=== PATIENT | male | born 1955 | race Caucasian/White ===

== ENCOUNTER → 2016-10-12 | Outpatient (CLI) | payer MEDICAID | LOC: OD 08:10 | PROVIDERS: ATTEND Internal Medicine | DX: Z94.1 Heart transplant status (principal); Z48.298 Encounter for aftercare following other organ transplant | CPT/HCPCS: 71020 ==

== ENCOUNTER → 2016-11-28 | Outpatient (CLI) | payer MEDICAID ==
[2016-11-28 15:02] LABS: HEMATOCRIT 33.3 % (37.9-51.0); HEMOGLOBIN 10.8 g/dL (13.5-17.0); HGB HCT DIFFERENCE -0.9; MEAN CORPUSCULAR HEMOGLOBIN 31.4 pg (27.0-33.4); MEAN CORPUSCULAR HGB CONC 32.5 g/dL (32.0-36.0); MEAN CORPUSCULAR VOLUME 97 fl (80-97); RED BLOOD COUNT 3.45 10^6/uL (4.35-5.55); RED CELL DISTRIBUTION WIDTH 16.5 % (11.5-14.0)
[2016-11-30 12:14] LABS: ANION GAP 13 (5-19); BLOOD UREA NITROGEN 34 mg/dL (7-20); CALCIUM 8.9 mg/dL (8.4-10.2); CARBON DIOXIDE 25 mmol/L (22-30); CHLORIDE 103 mmol/L (98-107); GLUCOSE 196 mg/dL (75-110); POTASSIUM 4.2 mmol/L (3.6-5.0); SODIUM 140.8 mmol/L (137-145)
== END ==
LOC: OD 14:36
PROVIDERS: ATTEND Nurse Practitioner Family
DX: Z48.298 Encounter for aftercare following other organ transplant (principal); Z94.1 Heart transplant status; Z79.899 Other long term (current) drug therapy
CPT/HCPCS: 36415; 80048; 80197; 85027

== ENCOUNTER → 2016-12-25 | Outpatient (CLI) | payer MEDICAID ==
[2016-12-29 07:43] LABS: CMV DNA PCR QUANT Negative (Negative)
== END ==
LOC: OD 10:31
PROVIDERS: ATTEND Nurse Practitioner Family
DX: Z94.1 Heart transplant status (principal); Z79.899 Other long term (current) drug therapy
CPT/HCPCS: 36415; 87496

== ENCOUNTER → 2016-12-31 | Outpatient (CLI) | payer MEDICAID ==
[2017-01-02 18:05] LABS: CMV DNA PCR QUANT Negative (Negative)
== END ==
LOC: OD 11:09
PROVIDERS: ATTEND Nurse Practitioner Family
DX: Z94.1 Heart transplant status (principal); Z79.899 Other long term (current) drug therapy
CPT/HCPCS: 36415; 87496

== ENCOUNTER → 2017-01-14 | Outpatient (CLI) | payer MEDICAID | LOC: OD 12:42 | PROVIDERS: ATTEND Nurse Practitioner Family | DX: Z94.1 Heart transplant status (principal); Z79.899 Other long term (current) drug therapy | CPT/HCPCS: 36415; 87496 ==

== ENCOUNTER → 2017-01-30 | Outpatient (CLI) | payer MEDICAID ==
[2017-02-05 07:24] LABS: CMV DNA PCR QUANT Negative (Negative)
== END ==
LOC: OD 14:06
PROVIDERS: ATTEND Nurse Practitioner Family
DX: Z94.1 Heart transplant status (principal); Z79.899 Other long term (current) drug therapy
CPT/HCPCS: 36415; 87496

== ENCOUNTER → 2017-02-11 | Outpatient (CLI) | payer MEDICAID | LOC: OD 11:50 | PROVIDERS: ATTEND Nurse Practitioner Family | DX: Z94.1 Heart transplant status (principal); Z79.899 Other long term (current) drug therapy | CPT/HCPCS: 36415; 87496 ==

== ENCOUNTER → 2017-02-20 | Outpatient (CLI) | payer MEDICAID ==
[2017-02-20 11:05] LABS: HEMATOCRIT 22.7 % (37.9-51.0); HGB HCT DIFFERENCE 0.4; MEAN CORPUSCULAR HEMOGLOBIN 32.3 pg (27.0-33.4); MEAN CORPUSCULAR HGB CONC 34.1 g/dL (32.0-36.0); MEAN CORPUSCULAR VOLUME 95 fl (80-97); RED CELL DISTRIBUTION WIDTH 16.7 % (11.5-14.0); WHITE BLOOD COUNT 13.2 10^3/uL (4.0-10.5)
[2017-02-20 12:48] LABS: HEMOGLOBIN 7.7 g/dL (13.5-17.0)
== END ==
LOC: OD 09:43
PROVIDERS: ATTEND Internal Medicine Cardiovascular Disease
DX: Z94.1 Heart transplant status (principal)
CPT/HCPCS: 36415; 85027

== ENCOUNTER 2018-11-27 16:31 | Emergency (ER) | payer MEDICARE, MEDICAID ==
[2018-11-27 16:43] VITALS: BP 124/74
--- NOTE | 2018-11-27 18:35 | ER Document Report ---
ED General - General Chief Complaint: Arm Problem Stated Complaint: ARM SWELLING Time Seen by Provider: 11/27/18 18:19 Primary Care Provider: CARLOS HANSON MD [Primary Care Provider] - Follow up as needed TRAVEL OUTSIDE OF THE U.S. IN LAST 30 DAYS: No - HPI Notes: Patient is a 63-year-old gentleman sent in from [facility]. He can offer me almost no meaningful history, is very difficult historian. From my understanding, he had dialysis today. This is done from his right subclavian port. He had an attempted fistula in his left upper extremity, has had swelling and redness since then. He cannot tell me when that was. It became warmer today per staff, so he was sent here. After dialysis, patient was noted to be 81% on room air. He was placed on 2 L and his oxygen improved. The patient denies any difficulty breathing. He really will not tell me anything else. During the course of my exam, the patient became extremely agitated when I palpated his abdomen, and refused to allow any further examination. I was told by the patient's nurse that she spoke to his son, who saw the arm, and states it looks no different. He also notes that this patient's behavior and mental status are at his baseline. Past Medical History - General Information source: Patient, Outside Facility Records - Social History Smoking Status: Unknown if Ever Smoked Drug Abuse: None Lives with: [facility] Family History: CAD - Past Medical History Cardiac Medical History: Reports: Hx Atrial Fibrillation, Hx Congestive Heart Failure, Hx Hypercholesterolemia, Hx Hypertension, Other - Status post heart transplant Pulmonary Medical History: Reports: Hx Sleep Apnea Endocrine Medical History: Reports: Hx Diabetes Mellitus Type 2 Renal/ Medical History: Reports: Hx End Stage Renal Disease Psychiatric Medical History: Reports: Hx Dementia Review of Systems - Review of Systems -: Yes ROS unobtainable due to patient's medical condition - Patient refusing to cooperate at this time Physical Exam - Vital signs Vitals: Temp Pulse BP Pulse Ox 98.2 F 77 124/74 94 11/27/18 16:41 11/27/18 16:41 11/27/18 16:41 11/27/18 16:41 - Notes Notes: This is a 63-year-old male who appears older than his stated age in no acute distress. Head is normocephalic and atraumatic. Pupils are equal round, reactive to light. Oral mucosa is moist. He has a central line in his right upper chest, he is for dialysis earlier today. No surrounding erythema. Heart is regular, lungs show diminished breath sounds but no wheezes, rales, rhonchi appreciated. Abdomen is tender in the epigastric region. Remainder of abdominal exam is limited. Examination of the left upper extremity is 3+ pitting edema to the shoulder. He has a healing but purulent Cole draining 8 cm long lesion this up her left arm, consistent with prior fistula placement. He is neurovascularly intact distally. Radial pulse easily palpable. He is missing his thumb and index finger on this hand. Sensation appears to be intact. Course - Re-evaluation Re-evalutation: 11/27/18 21:02 Patient presents emergency department for evaluation. There is some confusion as to what this patient's presenting symptoms actually are. He was noted to be mildly hypoxic per custodial staff earlier today, but they did not send him for evaluation of that. There was concern about his left arm being more warm, but it has been chronically red and swollen for the last several months since failed AV fistula placement. Laboratory investigations and imaging were obtained. Labs failed to reveal any leukocytosis. This patient is already on nightly oxygen. He is not in any respiratory distress. His Doppler failed to reveal any clear DVT, but it was limited by the fact that no proximal imaging could be performed. At this time patient is very anxious to be discharged back to the custodial. His chest x-ray revealed edema versus pneumonia. He is not in any respiratory distress. He is breathing without difficulty. I will go ahead and opt to treat him with oral antibiotics. The patient is amenable to this plan. He is given his first dose of Levaquin here, will write him a prescription for 500 mg of Levaquin every other day. He is to return to the ED with worsening or new concerning symptoms of any sort. - Vital Signs Vital signs: Temp Pulse Resp BP Pulse Ox 98.2 F 77 124/74 94 11/27/18 16:41 11/27/18 16:41 11/27/18 16:41 11/27/18 16:41 - Laboratory Result Diagrams: 11/27/18 18:56 11/27/18 18:56 Laboratory results interpreted by me: 11/27/18 11/27/18 18:56 18:56 RBC 3.03 L Hgb 10.1 L Hct 31.4 L MCV 104 H RDW 19.9 H Plt Count 92 L Carbon Dioxide 31 H BUN 36 H Creatinine 4.76 H Est GFR ( Amer) 15 L Est GFR (Non-Af Amer) 12 L Glucose 121 H Direct Bilirubin 0.6 H ALT 12 L Lipase 14.3 L - Diagnostic Test Radiology reviewed: Reports reviewed Radiology results interpreted by me: 11/27/18 21:02 Chest X-Ray 11/27/18 18:29 IMPRESSION: Findings suggest CHF exacerbation; infectious etiology is not excluded. Discharge - Discharge Clinical Impression: Hypoxia, Left arm swelling Pneumonia Qualifiers: Pneumonia type: due to unspecified organism Laterality: right Lung location: unspecified part of lung Qualified Code(s): J18.9 - Pneumonia, unspecified organism Condition: Stable Disposition: HOME-SNF (ED ONLY) Instructions: Pneumonia ([facility]) Additional Instructions: Take all of the antibiotic as prescribed until gone. Follow-up with your doctor next week. Return to the ED with worsening or new concerning symptoms of any sort. Referrals: CARLOS HANSON MD [Primary Care Provider] - Follow up as needed
--- NOTE | 2018-11-27 19:00 | RADIOLOGY REPORT (SQ) ---
EXAM DESCRIPTION: CHEST 2 VIEWS COMPLETED DATE/TIME: 11/27/2018 6:41 pm REASON FOR STUDY: hypoxia COMPARISON: 12/15/2006 EXAM PARAMETERS: NUMBER OF VIEWS: two views TECHNIQUE: Digital Frontal and Lateral radiographic views of the chest acquired. RADIATION DOSE: NA LIMITATIONS: Patient rotation. FINDINGS: LUNGS AND PLEURA: Patient rotation limits the ability to localize diffuse patchy opacifica tion which appear to be predominantly left-sided on this examination. A left-sided pleural effusion may be present. No pneumothorax. MEDIASTINUM AND HILAR STRUCTURES: No masses or contour abnormalities. HEART AND VASCULAR STRUCTURES: Cardiomegaly with central vascular prominence and indistinctness. BONES: No acute findings. HARDWARE: Dual-lumen catheter terminates in the region of the right atrium. Midline surgical changes . OTHER: No other significant finding. IMPRESSION: Findings suggest CHF exacerbation; infectious etiology is not excluded. TECHNICAL DOCUMENTATION: JOB ID: [id number] [employer]- All Rights Reserved Reading location - IP/workstation name: [email or web address]
[2018-11-27 19:28] LABS: ABSOLUTE LYMPHOCYTES (AUTO) 0.9 10^3/uL (0.5-4.7); ABSOLUTE MONOCYTES (AUTO) 0.4 10^3/uL (0.1-1.4); ABSOLUTE NEUT (AUTO) 3.1 10^3/uL (1.7-8.2); BASOPHILS % (AUTO) 0.5 % (0-2); HEMATOCRIT 31.4 % (37.9-51.0); HEMOGLOBIN 10.1 g/dL (13.5-17.0); LYMPHOCYTES % (AUTO) 20.6 % (13-45); MEAN CORPUSCULAR HEMOGLOBIN 33.4 pg (27.0-33.4); MEAN CORPUSCULAR HGB CONC 32.2 g/dL (32.0-36.0); MEAN CORPUSCULAR VOLUME 104 fl (80-97); MONOCYTES % (AUTO) 9.9 % (3-13); RED BLOOD COUNT 3.03 10^6/uL (4.35-5.55); RED CELL DISTRIBUTION WIDTH 19.9 % (11.5-14.0); TOTAL CELLS COUNTED % (AUTO) 100 %; WHITE BLOOD COUNT 4.5 10^3/uL (4.0-10.5)
[2018-11-27 19:39] LABS: INTERNATIONAL RATION (INR) 1.05; PARTIAL THROMBOPLASTIN TIME 29.3 SEC (23.5-35.8); PROTHROMBIN TIME 13.7 SEC (11.4-15.4)
[2018-11-27 19:48] LABS: ALANINE AMINOTRANSFERASE 12 U/L (21-72); ALBUMIN 3.7 g/dL (3.5-5.0); ALKALINE PHOSPHATASE 76 U/L (38-126); ANION GAP 9 (5-19); ASPARTATE AMINO TRANSFERASE 24 U/L (17-59); BILIRUBIN,DIRECT 0.6 mg/dL (0.0-0.4); BILIRUBIN,TOTAL 0.6 mg/dL (0.2-1.3); BLOOD UREA NITROGEN 36 mg/dL (7-20); CALCIUM 8.4 mg/dL (8.4-10.2); CARBON DIOXIDE 31 mmol/L (22-30); CHLORIDE 101 mmol/L (98-107); GLUCOSE 121 mg/dL (75-110); LIPASE 14.3 U/L (23-300); POTASSIUM 4.7 mmol/L (3.6-5.0); SODIUM 140.5 mmol/L (137-145); TOTAL PROTEIN 7.5 g/dL (6.3-8.2)
[2018-11-27 19:49] LABS: PLATELET COUNT 92 10^3/uL (150-450)
[2018-11-27] MEDS ORDERED: LEVOFLOXACIN 750 MG TABLET PO ONE (20:54)
--- NOTE | 2018-11-28 00:40 | RADIOLOGY REPORT (SQ) ---
EXAM DESCRIPTION: US EXTREMITY VEINS UNILATERAL COMPLETED DATE/TME: 11/27/2018 18:25 CLINICAL HISTORY: r/o DVT, edema COMPARISON: None Available TECHNIQUE: Duplex images of the jugular, subclavian, cephalic, radial and ulnar veins of the left upper extremity were submitted. FINDINGS: All of the above-mentioned venous structures demonstrate normal flow without thrombus. Images of the axillary and brachial vein were not obtained due to superimposed bandage. There is subcutaneous edema. IMPRESSION: No sonographic evidence of acute DVT within the left upper extremity. Subcutaneous edema. Images of the axillary and brachial vein were not obtained due to superimposed bandage.
== END 2018-11-27 22:00 ==
LOC: ER 16:31
DX: M79.89 Other specified soft tissue disorders (principal); J18.9 Pneumonia, unspecified organism; R09.02 Hypoxemia; E11.22 Type 2 diabetes mellitus with diabetic chronic kidney disease; I12.0 Hypertensive chronic kidney disease with stage 5 chronic kidney disease or end stage renal disease; N18.6 End stage renal disease; Z99.2 Dependence on renal dialysis; Z94.1 Heart transplant status; Z99.81 Dependence on supplemental oxygen
CPT/HCPCS: 99284; 36415; 87040; 83690; 85025; 85610; 85730; 80053; 93971; 71046; A9270

== ENCOUNTER 2019-03-10 11:03 | Emergency (ER) | payer MEDICARE, MEDICAID ==
[2019-03-10 12:56] LABS: HEMATOCRIT 31.7 % (37.9-51.0); HEMOGLOBIN 10.8 g/dL (13.5-17.0); MEAN CORPUSCULAR HEMOGLOBIN 34.8 pg (27.0-33.4); MEAN CORPUSCULAR VOLUME 102 fl (80-97); PLATELET COUNT 103 10^3/uL (150-450); RED BLOOD COUNT 3.09 10^6/uL (4.35-5.55)
[2019-03-10 13:13] LABS: ALBUMIN 3.7 g/dL (3.5-5.0); ALKALINE PHOSPHATASE 77 U/L (38-126); ANION GAP 11 (5-19); ASPARTATE AMINO TRANSFERASE 27 U/L (17-59); BILIRUBIN,DIRECT 0.6 mg/dL (0.0-0.4); BILIRUBIN,TOTAL 1.4 mg/dL (0.2-1.3); BLOOD UREA NITROGEN 50 mg/dL (7-20); CALCIUM 8.9 mg/dL (8.4-10.2); CARBON DIOXIDE 24 mmol/L (22-30); CHLORIDE 102 mmol/L (98-107); GLUCOSE 94 mg/dL (75-110); POTASSIUM 4.3 mmol/L (3.6-5.0); TOTAL PROTEIN 7.3 g/dL (6.3-8.2)
[2019-03-10 13:20] LABS: ABSOLUTE LYMPHOCYTES# (MANUAL) 1.1 10^3/uL (0.5-4.7); ABSOLUTE MONOCYTES # (MANUAL) 0.4 10^3/uL (0.1-1.4); BAND NEUTROPHILS % (MANUAL) 8 % (3-5); BASOPHILS % (MANUAL) 0 % (0-2); EOSINOPHILS % (MANUAL) 0 % (0-6); LYMPHOCYTES % (MANUAL) 19 % (13-45); METAMYELOCYTES % (MANUAL) 2 % (0); MONOCYTES % (MANUAL) 6 % (3-13); SEGMENTED NEUTROPHILS % (MAN) 65 % (42-78); TOTAL CELLS COUNTED 100
[2019-03-10 13:22] LABS: PLATELET COMMENT DECREASED
[2019-03-10 13:24] LABS: ANISOCYTOSIS 1+; POIKILOCYTOSIS SLIGHT
--- NOTE | 2019-03-10 13:42 | ER Document Report ---
ED General - General Chief Complaint: Wound Infection Stated Complaint: LEFT ARM PAIN Time Seen by Provider: 03/10/19 12:16 Primary Care Provider: CARLOS HANSON MD [Primary Care Provider] - Follow up as needed TRAVEL OUTSIDE OF THE [place] IN LAST 30 DAYS: No - HPI Notes: Patient is a 63-year-old male who presents to the emergency department for evaluation of erythema overlying his AV fistula. I cannot really tran any significant history from the patient, as he has a history of dementia. I asked him how long his arm is been swollen, he states since June. I asked him the date now, he cannot answer me. He is very agitated, states he just wants to leave. Evidently he is due for dialysis today, did not have this performed. - Related Data Allergies/Adverse Reactions: ROMEL Inhibitors Allergy (Verified 03/10/19 11:25) gabapentin Allergy (Verified 03/10/19 11:25) haloperidol [From Haldol] Allergy (Verified 03/10/19 11:25) Past Medical History - General Information [facility] - Social History Smoking Status: Never Smoker Chew tobacco use (# tins/day): No Frequency of alcohol use: None Drug Abuse: None Family History: CAD Patient has suicidal ideation: No Patient has homicidal ideation: No - Past Medical History Cardiac Medical History: Reports: Hx Atrial Fibrillation, Hx Congestive Heart Failure, Hx Hypercholesterolemia, Hx Hypertension Pulmonary Medical History: Reports: Hx COPD, Hx Sleep Apnea Endocrine Medical History: Reports: Hx Diabetes Mellitus Type 2 Renal/ Medical History: Reports: Hx End Stage Renal Disease. Denies: Hx Peritoneal Dialysis GI Medical History: Reports: Hx Ulcer Psychiatric Medical History: Reports: Hx Dementia Past Surgical History: Reports: Hx Cardiac Surgery - heart transplant Review of Systems - Review of Systems -: Yes ROS unobtainable due to patient's medical condition - dementia Physical Exam - Vital signs Vitals: Temp Pulse Resp BP Pulse Ox 98.2 F 82 18 134/77 H 95 03/10/19 11:14 03/10/19 11:14 03/10/19 11:14 03/10/19 11:14 03/10/19 11:14 - Notes Notes: Patient is a 63-year-old male who appears much older than his stated age, no acute distress. Head is normocephalic and atraumatic, pupils are equal round, reactive to light. Heart is regular, lungs show diminished breath sounds but no wheezes, rales, rhonchi. Abdomen is soft and nontender, normoactive bowel sounds. Lower extremities without cyanosis or clubbing. Examination of the left upper extremity yields a moderate amount of pitting edema from the shoulder down. AV fistula noted on the ulnar aspect of the upper arm, with moderate edema and tenderness. Overlying erythema diffuse, not well demarcated. Palpable thrill noted. He is missing his second and third digits on that hand. Course - Re-evaluation Re-evalutation: 03/10/19 15:42 Patient presents emergency department for evaluation of left arm redness and swelling. Initially had absolutely no history. Eventually, patient's daughter called, left some history with staff here. He is a heart transplant patient, has been to [place] for about 1 year. He has a fistula in his left arm, that was supposed to be redirected by physician at [place]. He missed the appointment last week for that. At this point, I do not believe the swelling is shown up overnight. His venous Doppler was unremarkable. He is not febrile. He has no leukocytosis. I will go ahead and treat him with IV clindamycin, send him home with oral clindamycin. In regards to his electrolytes, he has no significant hyperkalemia. He is not uremic. He Bharath has a port in place in his right chest, he can be dialyzed tomorrow. He needs to follow-up with [place] and primary care, return to the ED with worsening or new concerning symptoms of any sort. - Vital Signs Vital signs: Temp Pulse Resp BP Pulse Ox 98.2 F 82 18 134/77 H 95 03/10/19 11:14 03/10/19 11:14 03/10/19 11:14 03/10/19 11:14 03/10/19 11:14 - Laboratory Result Diagrams: 03/10/19 12:26 03/10/19 12:26 Laboratory results interpreted by me: 03/10/19 03/10/19 12:26 12:26 RBC 3.09 L Hgb 10.8 L Hct 31.7 L MCV 102 H MCH 34.8 H RDW 18.0 H Plt Count 103 L Band Neutrophils % 8 H Metamyelocytes % 2 H BUN 50 H Creatinine 6.13 H Est GFR ( Amer) 11 L Est GFR (MDRD) Non-Af 9 L Total Bilirubin 1.4 H Direct Bilirubin 0.6 H - Diagnostic Test Radiology reviewed: Reports reviewed Radiology results interpreted by me: 03/10/19 15:43 Venous Doppler Study 03/10/19 13:30 IMPRESSION: NO EVIDENCE DVT OR SVT LEFT ARM. Discharge - Discharge Clinical Impression: Cellulitis, Edema of left upper extremity Condition: Stable Disposition: HOME-SNF (ED ONLY) Instructions: Cellulitis ([facility]) Additional Instructions: Take all the antibiotic as prescribed until gone. Follow-up as scheduled in [place] in regards to your AV fistula. If you develop worsening or new concerning symptoms of any sort, return immediately to the emergency department for evaluation. Referrals: CARLOS HANSON MD [Primary Care Provider] - Follow up as needed
[2019-03-10] MEDS ORDERED: CLINDAMYCIN 900 MG/D5W RTU 900 MG/50 ML RTUPB IV ONE (14:24)
--- NOTE | 2019-03-10 14:59 | RADIOLOGY REPORT (SQ) ---
EXAM DESCRIPTION: VENOUS UNILATERAL UPPER COMPLETED DATE/TIME: 03/10/2019 2:50 pm REASON FOR STUDY: LUE SWELLING COMPARISON: None. TECHNIQUE: Dynamic and static andino scale and color images acquired of the left arm venous system. Se lected spectral images acquired with additional compression and augmentation maneuvers. The contralat eral subclavian vein and internal jugular vein were also imaged. Images stored on PACS. LIMITATIONS: None. FINDINGS: INTERNAL JUGULAR VEIN: Normal phasicity, compression, augmentation. No visualized echogeni c material on andino scale. No defects on color images. Comparison opposite side normal. SUBCLAVIAN VEIN: Normal compression, augmentation. No visualized echogenic material on andino scale. No defects on color images. AXILLARY VEIN: Normal compression, augmentation. No visualized echogenic material on andino scale. No d efects on color images. BRACHIAL VEIN: Normal compression, augmentation. No visualized echogenic material on andino scale. No d efects on color images. BASILIC VEIN: Normal compression, augmentation. No visualized echogenic material on andino scale. No de fects on color images. CEPHALIC VEIN: Normal compression, augmentation. No visualized echogenic material on andino scale. No d efects on color images. OTHER: No other significant finding. IMPRESSION: NO EVIDENCE DVT OR SVT LEFT ARM. TECHNICAL DOCUMENTATION: JOB ID: [id number] [employer]- All Rights Reserved Reading location - IP/workstation name: [email or web address]
[2019-03-10 16:33] VITALS: BP 125/73
== END 2019-03-10 17:21 ==
LOC: ER 11:03
DX: L03.90 Cellulitis, unspecified (principal); R60.0 Localized edema; F03.90 Unspecified dementia, unspecified severity, without behavioral disturbance, psychotic disturbance, mood disturbance, and anxiety; I12.0 Hypertensive chronic kidney disease with stage 5 chronic kidney disease or end stage renal disease; E11.22 Type 2 diabetes mellitus with diabetic chronic kidney disease; N18.6 End stage renal disease; Z99.2 Dependence on renal dialysis; Z94.1 Heart transplant status; J44.9 Chronic obstructive pulmonary disease, unspecified; Z88.8 Allergy status to other drugs, medicaments and biological substances; Z88.6 Allergy status to analgesic agent
CPT/HCPCS: 36415; 87040; 85025; 80053; 93971; J3490; 87077; 96365; 99284

== ENCOUNTER 2019-03-12 16:46 | Emergency (ER) | payer MEDICARE, MEDICAID ==
--- NOTE | 2019-03-12 17:09 | ER Document Report ---
ED General - General Chief Complaint: Arm Problem Stated Complaint: SWOLLEN LEFT ARM Time Seen by Provider: 03/12/19 17:04 Primary Care Provider: CARLOS AHNSON MD [Primary Care Provider] - Follow up as needed Cannot obtain history due to: Dementia TRAVEL OUTSIDE OF THE [place] IN LAST 30 DAYS: No - HPI Patient complains to provider of: left arm swelling Notes: Sober from prison for evaluation of left arm swelling. Patient is a very poor historian secondary to dementia. Patient is a dialysis patient. Patient was up at [facility] had a procedure performed on his left forearm for possible some cancer removal. Since then staff is noted his entire left upper extremity has swollen. Patient does have a dialysis fistula in that arm. Has a temporary subclavian access in his right subclavian. he denies all symptoms. Patient was just seen in the emergency department for similar symptoms. Had extensive work-up at that time no leukocytosis. Imaging study at that time showed no DVT but just some fluid in his tissue. Patient is scheduled to follow-up with his specialist at [facility] tomorrow. Is a dialysis patient is afebrile poor historian. Had been given clindamycin in the emergency department has still has prescriptions for clindamycin for possible coinfection of cellulitis in his left upper extremity. - Related Data Allergies/Adverse Reactions: ROMEL Inhibitors Allergy (Verified 03/10/19 11:25) gabapentin Allergy (Verified 03/10/19 11:25) haloperidol [From Haldol] Allergy (Verified 03/10/19 11:25) Past Medical History - Social History Smoking Status: Unknown if Ever Smoked Family History: CAD Patient has suicidal ideation: No Patient has homicidal ideation: No - Past Medical History Cardiac Medical History: Reports: Hx Atrial Fibrillation, Hx Congestive Heart Failure, Hx Hypercholesterolemia, Hx Hypertension Pulmonary Medical History: Reports: Hx COPD, Hx Sleep Apnea Endocrine Medical History: Reports: Hx Diabetes Mellitus Type 2 Renal/ Medical History: Reports: Hx End Stage Renal Disease. Denies: Hx Peritoneal Dialysis GI Medical History: Reports: Hx Ulcer Psychiatric Medical History: Reports: Hx Dementia Past Surgical History: Reports: Hx Cardiac Surgery - heart transplant Review of Systems - Review of Systems -: Yes ROS unobtainable due to patient's medical condition Physical Exam - Vital signs Vitals: Temp Pulse Resp BP Pulse Ox 97.9 F 68 16 121/68 97 03/12/19 16:51 03/12/19 16:51 03/12/19 16:51 03/12/19 16:51 03/12/19 16:51 - Notes Notes: PHYSICAL EXAMINATION: GENERAL: Well-appearing, well-nourished and in no acute distress. HEAD: Atraumatic, normocephalic. EYES: Pupils equal round and reactive to light, extraocular movements intact, sclera anicteric, conjunctiva are normal. ENT: nares patent, oropharynx clear without exudates. Moist mucous membranes. NECK: Normal range of motion, supple without lymphadenopathy LUNGS: Breath sounds clear to auscultation bilaterally and equal. No wheezes rales or rhonchi. HEART: Regular rate and rhythm without murmurs ABDOMEN: Soft, nontender, normoactive bowel sounds. No guarding, no rebound. No masses appreciated. EXTREMITIES: Left upper extremity profoundly swollen compared to right. Forearm wrapped and clean dry dressing, and refuses to allow us to take off the dressing on his left forearm. SKIN: Warm, Dry, normal turgor, no rashes or lesions noted. Course - Re-evaluation Re-evalutation: 03/12/19 19:13 63-year-old patient with extensive medical history including dialysis presents with continued left upper extremity swelling from his prison. She is afebrile has stable vital signs within normal limits. Patient's lab work today are actually improved from 2 days ago. He has no white count. Kidney function appears improved as he did have dialysis today. Patient's imaging study of his left upper extremity is again unremarkable. She is still on oral clindamycin he was prescribed 2 days ago. Patient is scheduled to see [facility] for this peripheral edema tomorrow. Recommend he get transport to this appointment from his prison. Patient will be discharged back to his prison improved with another unremarkable work-up. - Vital Signs Vital signs: Temp Pulse Resp BP Pulse Ox 97.9 F 68 16 121/68 97 03/12/19 16:51 03/12/19 16:51 03/12/19 16:51 03/12/19 16:51 03/12/19 16:51 - Laboratory Result Diagrams: 03/12/19 17:24 03/12/19 17:24 Laboratory results interpreted by me: 03/12/19 03/12/19 17:24 17:24 RBC 2.71 L Hgb 9.2 L Hct 27.8 L MCV 103 H MCH 34.0 H RDW 17.6 H Plt Count 101 L Band Neutrophils % 1 L Metamyelocytes % 1 H Sodium 136.6 L BUN 28 H Creatinine 3.66 H Est GFR ( Amer) 20 L Est GFR (MDRD) Non-Af 17 L Glucose 119 H Calcium 8.1 L Direct Bilirubin 0.5 H Albumin 3.4 L Discharge - Discharge Clinical Impression: Left arm swelling Condition: Stable Disposition: HOME, SELF-CARE Instructions: Edema, Peripheral ([facility]) Additional Instructions: Follow-up at [facility] within the next 2 to 3 days. Also follow-up PCP if anything changes. It is imperative you do not do not miss this appointment Referrals: CARLOS HANSON MD [Primary Care Provider] - Follow up as needed
[2019-03-12 17:46] LABS: HEMATOCRIT 27.8 % (37.9-51.0); HEMOGLOBIN 9.2 g/dL (13.5-17.0); MEAN CORPUSCULAR HGB CONC 33.2 g/dL (32.0-36.0); MEAN CORPUSCULAR VOLUME 103 fl (80-97); PLATELET COUNT 101 10^3/uL (150-450); RED BLOOD COUNT 2.71 10^6/uL (4.35-5.55); RED CELL DISTRIBUTION WIDTH 17.6 % (11.5-14.0); WHITE BLOOD COUNT 4.6 10^3/uL (4.0-10.5)
[2019-03-12 17:57] LABS: ALBUMIN 3.4 g/dL (3.5-5.0); ALKALINE PHOSPHATASE 84 U/L (38-126); ANION GAP 9 (5-19); ASPARTATE AMINO TRANSFERASE 21 U/L (17-59); BILIRUBIN,DIRECT 0.5 mg/dL (0.0-0.4); BILIRUBIN,TOTAL 0.9 mg/dL (0.2-1.3); BLOOD UREA NITROGEN 28 mg/dL (7-20); CALCIUM 8.1 mg/dL (8.4-10.2); CARBON DIOXIDE 28 mmol/L (22-30); CHLORIDE 100 mmol/L (98-107); GLUCOSE 119 mg/dL (75-110); TOTAL PROTEIN 6.8 g/dL (6.3-8.2)
[2019-03-12 18:06] LABS: ABSOLUTE LYMPHOCYTES# (MANUAL) 1.1 10^3/uL (0.5-4.7); ABSOLUTE MONOCYTES # (MANUAL) 0.3 10^3/uL (0.1-1.4); BAND NEUTROPHILS % (MANUAL) 1 % (3-5); BASOPHILS % (MANUAL) 0 % (0-2); EOSINOPHILS % (MANUAL) 1 % (0-6); LYMPHOCYTES % (MANUAL) 24 % (13-45); METAMYELOCYTES % (MANUAL) 1 % (0); MONOCYTES % (MANUAL) 6 % (3-13); SEGMENTED NEUTROPHILS % (MAN) 67 % (42-78); TOTAL CELLS COUNTED 100
[2019-03-12 18:08] LABS: ANISOCYTOSIS 1+; PLATELET COMMENT DECREASED; TOXIC GRANULATION SLIGHT
--- NOTE | 2019-03-12 19:00 | EKG REPORT ---
SEVERITY:- ABNORMAL ECG - SINUS RHYTHM PROBABLE LEFT ATRIAL ABNORMALITY RIGHT BUNDLE BRANCH BLOCK NONSPECIFIC INFERIOR ST CHANGES : Confirmed by: Stone Estrada MD 12-Mar-2019 19:00:03
--- NOTE | 2019-03-12 20:50 | VASCULAR PRELIM REPORT ---
Provider Note Provider Note: Left upper extremity negative for DVT.
[2019-03-12 21:02] VITALS: BP 128/78
--- NOTE | 2019-03-13 08:31 | XCELERA REPORT ---
[address] [address] Upper Extremity Venous Evaluation Name: JAMES BURGOS Age: 63 yrs Gender: Male : 1955 Patient Status: Emergency Patient Location: ER Study Date: 03/12/2019 05:56 PM Procedure: Unilateral duplex scan of the left upper extremity veins was performed, including responses to compression and other maneuvers. Reason For Study: left arm swelling Ordering Physician: KUSHAL VERAS Performed By: Angie Meadows Left Sided Venous Evaluation Bandaging and a patent AV fistula, subcutaneous edema noted in the forearm. Difficult study due to presence of fistula and bandaging. Excepting aforementioned findings, normal vessel filling wall to wall, compression and augmentation as well as Colour flow down to the forearm veins. Interpretation Summary No duplex evidence of DVT or obstruction in the left upper extremity. AV fistula and associated findings as noted. : KUSHAL VERAS > Zenon Wilson
== END 2019-03-12 21:02 | disposition home or self-care (01) ==
LOC: ER 16:46
DX: M79.89 Other specified soft tissue disorders (principal); F03.90 Unspecified dementia, unspecified severity, without behavioral disturbance, psychotic disturbance, mood disturbance, and anxiety; Z98.890 Other specified postprocedural states; I12.0 Hypertensive chronic kidney disease with stage 5 chronic kidney disease or end stage renal disease; E11.22 Type 2 diabetes mellitus with diabetic chronic kidney disease; N18.6 End stage renal disease; Z99.2 Dependence on renal dialysis; J44.9 Chronic obstructive pulmonary disease, unspecified; Z88.8 Allergy status to other drugs, medicaments and biological substances; Z88.6 Allergy status to analgesic agent
CPT/HCPCS: 36415; 80053; 85025; 93005; 93010; 93971; 99285

== ENCOUNTER 2019-03-13 10:06 | Emergency (ER) | payer MEDICARE, MEDICAID ==
[2019-03-13] MEDS ORDERED: CLINDAMYCIN 600 MG/D5W RTU 600 MG/50 ML RTUPB IV ONE (10:57)
[2019-03-13] MEDS ORDERED: MORPHINE SULFATE 10 MG/ML INJ IV ONE (11:17)
[2019-03-13] MEDS ORDERED: ONDANSETRON HCL INJ/PF 4 MG/2 ML SDV IV ONE (11:18)
[2019-03-13 11:22] LABS: INTERNATIONAL RATION (INR) 1.27
[2019-03-13 11:24] LABS: HEMATOCRIT 24.4 % (37.9-51.0); MEAN CORPUSCULAR HEMOGLOBIN 33.7 pg (27.0-33.4); MEAN CORPUSCULAR HGB CONC 32.6 g/dL (32.0-36.0); MEAN CORPUSCULAR VOLUME 103 fl (80-97); PLATELET COUNT 107 10^3/uL (150-450); RED BLOOD COUNT 2.36 10^6/uL (4.35-5.55); RED CELL DISTRIBUTION WIDTH 17.2 % (11.5-14.0); WHITE BLOOD COUNT 5.6 10^3/uL (4.0-10.5)
[2019-03-13 11:42] LABS: ALBUMIN 2.8 g/dL (3.5-5.0); ALKALINE PHOSPHATASE 62 U/L (38-126); ANION GAP 8 (5-19); ASPARTATE AMINO TRANSFERASE 17 U/L (17-59); BILIRUBIN,DIRECT 0.5 mg/dL (0.0-0.4); BILIRUBIN,TOTAL 0.9 mg/dL (0.2-1.3); BLOOD UREA NITROGEN 38 mg/dL (7-20); CALCIUM 8.3 mg/dL (8.4-10.2); CARBON DIOXIDE 28 mmol/L (22-30); CHLORIDE 101 mmol/L (98-107); GLUCOSE 107 mg/dL (75-110); POTASSIUM 4.1 mmol/L (3.6-5.0)
[2019-03-13 12:06] LABS: ABSOLUTE MONOCYTES # (MANUAL) 0.3 10^3/uL (0.1-1.4); BAND NEUTROPHILS % (MANUAL) 2 % (3-5); BASOPHILS % (MANUAL) 0 % (0-2); EOSINOPHILS % (MANUAL) 2 % (0-6); LYMPHOCYTES % (MANUAL) 36 % (13-45); MONOCYTES % (MANUAL) 5 % (3-13); SEGMENTED NEUTROPHILS % (MAN) 55 % (42-78); TOTAL CELLS COUNTED 100
[2019-03-13 12:07] LABS: ANISOCYTOSIS 1+; OVALOCYTES 1+; PLATELET COMMENT DECREASED; POIKILOCYTOSIS 1+
--- NOTE | 2019-03-13 12:47 | ER Document Report ---
Entered by ELLIS BASS SCRIBE 03/13/19 1046 Acting as scribe for:EMIR ELIZABETH MD ED General - General Stated Complaint: FISTULA PROBLEM Time Seen by Provider: 03/13/19 10:34 Primary Care Provider: CARLOS HANSON MD [Primary Care Provider] - Follow up as needed Mode of Arrival: Ambulatory Information source: Patient Notes: Patient is a 63 year old male s/p heart transplant that presents to the emergency department today with complaints of his LUE fistula squirting large amounts of blood beginning this morning. Patient was seen yesterday and started on clindamycin for cellulitis that was overlying his fistula. Patient states that he is unsure what time it started bleeding this morning but his bed sheets and clothes were saturated with blood. Patient last dialyzed two days ago. TRAVEL OUTSIDE OF THE [place] IN LAST 30 DAYS: No - Related Data Allergies/Adverse Reactions: ROMEL Inhibitors Allergy (Verified 03/10/19 11:25) gabapentin Allergy (Verified 03/10/19 11:25) haloperidol [From Haldol] Allergy (Verified 03/10/19 11:25) Past Medical History - General Information source: Patient, [facility] Records, Outside Facility Records - Social History Smoking Status: Former Smoker Cigarette use (# per day): No Frequency of alcohol use: None Drug Abuse: None Lives with: Long Term Family History: Reviewed & Not Pertinent, CAD - Past Medical History Cardiac Medical History: Reports: Hx Atrial Fibrillation, Hx Congestive Heart Failure, Hx Hypercholesterolemia, Hx Hypertension Pulmonary Medical History: Reports: Hx COPD, Hx Sleep Apnea Endocrine Medical History: Reports: Hx Diabetes Mellitus Type 2 Renal/ Medical History: Reports: Hx End Stage Renal Disease, Hx Hemodialysis GI Medical History: Reports: Hx Ulcer Psychiatric Medical History: Reports: Hx Dementia Past Surgical History: Reports: Hx Cardiac Surgery - heart transplant Review of Systems - Review of Systems Constitutional: No symptoms reported EENT: No symptoms reported Cardiovascular: No symptoms reported Respiratory: No symptoms reported Gastrointestinal: No symptoms reported Genitourinary: No symptoms reported Male Genitourinary: No symptoms reported Musculoskeletal: No symptoms reported Skin: No symptoms reported Hematologic/Lymphatic: Other - LUE fistula bleeding Neurological/Psychological: No symptoms reported -: Yes All other systems reviewed and negative Physical Exam - Vital signs Vitals: Resp 18 03/13/19 10:47 - Notes Notes: Physical Exam: General: Alert, appears chronically ill, cachectic. HEENT: Normocephalic. Atraumatic. PERRL. Extraocular movements intact. Oropharynx clear. Very poor dentition. Neck: Supple. Non-tender. Respiratory: No respiratory distress. Clear and equal breath sounds bilaterally. Cardiovascular: Grade 2 systolic ejection murmur, regular rhythm. Abdominal: Normal Inspection. Non-tender. No distension. Normal Bowel Sounds. Back: No gross abnormalities. Extremities: Moves all four extremities. Upper extremities: Bandage on the left upper re Lower extremities: Normal inspection. No edema. Normal ROM. Neurological: Normal cognition. AAOx4. Normal speech. Psychological: Normal affect. Normal Mood. Skin: Warm. Dry. Normal color. Course - Vital Signs Vital signs: Temp Pulse Resp BP Pulse Ox 97.8 F 16 100/40 L 03/13/19 13:01 03/13/19 13:01 03/13/19 13:28 - Laboratory Result Diagrams: 03/13/19 10:55 03/13/19 10:55 Laboratory results interpreted by me: 03/13/19 03/13/19 03/13/19 10:55 10:55 10:55 RBC 2.36 L Hgb 8.0 L Hct 24.4 L MCV 103 H MCH 33.7 H RDW 17.2 H Plt Count 107 L Band Neutrophils % 2 L PT 16.0 H Sodium 136.9 L BUN 38 H Creatinine 4.72 H Est GFR ( Amer) 15 L Est GFR (MDRD) Non-Af 13 L Calcium 8.3 L Direct Bilirubin 0.5 H Total Protein 6.0 L Albumin 2.8 L - Consults Dr. Eugene Consulted provider: other - Will accept at [facility] Critical Care Note - Critical Care Note Total time excluding time spent on procedures (mins): 40 Discharge - Discharge Clinical Impression: Chronic renal failure, stage 5, Left arm swelling, Heart transplant recipient Bleeding from dialysis shunt Qualifiers: Encounter type: initial encounter Qualified Code(s): T82.838A - Hemorrhage due to vascular prosthetic devices, implants and grafts, initial encounter Cellulitis Qualifiers: Site of cellulitis: extremity Site of cellulitis of extremity: upper extremity Laterality: left Qualified Code(s): L03.114 - Cellulitis of left upper limb Condition: Stable Disposition: [facility] Referrals: CARLOS HANSON MD [Primary Care Provider] - Follow up as needed Scribe Attestation: 03/13/19 12:46 I personally performed the services described in the documentation, reviewed and edited the documentation which was dictated to the scribe in my presence, and it accurately records my words and actions. I personally performed the services described in the documentation, reviewed and edited the documentation which was dictated to the scribe in my presence, and it accurately records my words and actions.
[2019-03-13 13:29] VITALS: BP 100/40
== END 2019-03-13 13:39 | disposition short-term general hospital (02) ==
LOC: ER 10:06
DX: T82.838A Hemorrhage due to vascular prosthetic devices, implants and grafts, initial encounter (principal); L03.116 Cellulitis of left lower limb; M79.89 Other specified soft tissue disorders; E11.22 Type 2 diabetes mellitus with diabetic chronic kidney disease; I13.2 Hypertensive heart and chronic kidney disease with heart failure and with stage 5 chronic kidney disease, or end stage renal disease; N18.5 Chronic kidney disease, stage 5; Z99.2 Dependence on renal dialysis; Z94.1 Heart transplant status; I48.91 Unspecified atrial fibrillation; E78.00 Pure hypercholesterolemia, unspecified
CPT/HCPCS: 86900; 86901; 36415; 87040; 86850; 85025; 85610; 80053; J2270; J2405; 96365; 96375; 99291

== ENCOUNTER 2019-12-12 00:08 | Emergency (ER) | payer MEDICARE, MEDICAID ==
[2019-12-12 01:40] LABS: INTERNATIONAL RATION (INR) 1.04; PROTHROMBIN TIME 13.6 SEC (11.4-15.4)
[2019-12-12 01:51] LABS: ALBUMIN 3.1 g/dL (3.5-5.0); ALKALINE PHOSPHATASE 79 U/L (38-126); ANION GAP 8 (5-19); ASPARTATE AMINO TRANSFERASE 30 U/L (17-59); BILIRUBIN,DIRECT 0.2 mg/dL (0.0-0.4); BILIRUBIN,TOTAL 0.8 mg/dL (0.2-1.3); BLOOD UREA NITROGEN 73 mg/dL (7-20); CALCIUM 8.6 mg/dL (8.4-10.2); CARBON DIOXIDE 25 mmol/L (22-30); CHLORIDE 103 mmol/L (98-107); CREATINE KINASE 29 U/L (55-170); GLUCOSE 121 mg/dL (75-110); TOTAL PROTEIN 6.9 g/dL (6.3-8.2)
[2019-12-12 01:59] LABS: ABSOLUTE BASOPHILS # (AUTO) 0.1 10^3/uL (0.0-0.2); ABSOLUTE LYMPHOCYTES (AUTO) 2.1 10^3/uL (0.5-4.7); ABSOLUTE MONOCYTES (AUTO) 0.4 10^3/uL (0.1-1.4); ABSOLUTE NEUT (AUTO) 5.3 10^3/uL (1.7-8.2); BASOPHILS % (AUTO) 0.7 % (0-2); EOSINOPHILS % (AUTO) 0.3 % (0-6); HEMATOCRIT 38.2 % (37.9-51.0); HEMOGLOBIN 12.5 g/dL (13.5-17.0); LYMPHOCYTES % (AUTO) 26.4 % (13-45); MEAN CORPUSCULAR HEMOGLOBIN 36.6 pg (27.0-33.4); MEAN CORPUSCULAR HGB CONC 32.8 g/dL (32.0-36.0); MEAN CORPUSCULAR VOLUME 112 fl (80-97); MONOCYTES % (AUTO) 5.1 % (3-13); RED BLOOD COUNT 3.42 10^6/uL (4.35-5.55); RED CELL DISTRIBUTION WIDTH 15.7 % (11.5-14.0); SEGMENTED NEUTROPHILS % (AUTO) 67.5 % (42-78); TOTAL CELLS COUNTED % (AUTO) 100 %; WHITE BLOOD COUNT 7.9 10^3/uL (4.0-10.5)
--- NOTE | 2019-12-12 02:03 | ER Document Report ---
ED General - General Mode of Arrival: Medic Information source: Transfer Record, Emergency Med Personnel, [facility] Records, Outside Facility Records Cannot obtain history due to: Dementia TRAVEL OUTSIDE OF THE [place] IN LAST 30 DAYS: No - HPI Onset: Just prior to arrival Onset/Duration: Sudden Quality of pain: No pain Associated symptoms: None Exacerbated by: Denies Relieved by: Denies Similar symptoms previously: No Recently seen / treated by doctor: Yes <JESSE JOSEPH - Last Filed: 12/12/19 02:44> <DINORA LOTT IV - Last Filed: 12/12/19 03:18> - General Chief Complaint: Rectal Bleeding Stated Complaint: RECTAL BLEEDING, ABNORMAL LABS Primary Care Provider: CARLOS HANSON MD [Primary Care Provider] - Follow up as needed Notes: Patient is a pleasant 64-year-old male presenting to the emergency department chief complaint of rectal bleeding. Patient is a dialysis patient who normally dialyzes Saturday and Saturday. Patient is coming from [place] where he has been a resident for quite some time. This evening they state that when they were doing their rounds they found a rather large bloody stool. They also state that the patient's hemoglobin was found to be low. Review of medical records demonstrates that the patient had hemoglobin obtained yesterday by the PCP which was 11.7. Remainder of HPI and review of systems is unobtainable secondary to limited records from the alf as well as patient's dementia. (JESSE JOSEPH) - Related Data Allergies/Adverse Reactions: ROMEL Inhibitors Allergy (Verified 03/10/19 11:25) gabapentin Allergy (Verified 03/10/19 11:25) haloperidol [From Haldol] Allergy (Verified 03/10/19 11:25) Past Medical History - General Information source: Transfer Record, Emergency Med Personnel, [facility] Records, Outside Facility Records Cannot obtain history due to: Dementia - Social History Smoking Status: Never Smoker Chew tobacco use (# tins/day): No Frequency of alcohol use: None Drug Abuse: None Lives with: [facility] Family History: Reviewed & Not Pertinent, CAD Patient has homicidal ideation: No - Past Medical History Cardiac Medical History: Reports: Hx Atrial Fibrillation, Hx Congestive Heart Failure, Hx Hypercholesterolemia, Hx Hypertension Pulmonary Medical History: Reports: Hx COPD, Hx Sleep Apnea Endocrine Medical History: Reports: Hx Diabetes Mellitus Type 2 Renal/ Medical History: Reports: Hx End Stage Renal Disease, Hx Hemodialysis. Denies: Hx Peritoneal Dialysis GI Medical History: Reports: Hx Ulcer Psychiatric Medical History: Reports: Hx Dementia Past Surgical History: Reports: Hx Cardiac Surgery - heart transplant <JESSE JOSEPH - Last Filed: 12/12/19 02:44> Review of Systems - Review of Systems -: Yes ROS unobtainable due to patient's medical condition <JESSE JOSEPH - Last Filed: 12/12/19 02:44> Physical Exam <JESSE JOSEPH - Last Filed: 12/12/19 02:44> - Vital signs Vitals: Temp 98.4 F 12/12/19 00:11 - Notes Notes: PHYSICAL EXAMINATION: GENERAL: Patient is a 64-year-old demented male presenting for evaluation for rectal bleeding. HEAD: Atraumatic, normocephalic. EYES: Pupils equal round and reactive to light, extraocular movements intact, sclera anicteric, conjunctiva are normal. ENT: nares patent, oropharynx clear without exudates. Tachy mucous membranes. NECK: Normal range of motion, supple without lymphadenopathy, no appreciable JVD LUNGS: Lungs clear to auscultation bilaterally and equal. No wheezes rales or rhonchi. Dialysis catheter is present in the right upper chest wall HEART: Regular rate and rhythm without murmurs ABDOMEN: Soft, nontender, normal bowel sounds. No guarding, no rebound. No masses appreciated. Genitourinary: On examination patient has multiple lesions to the scrotum of unknown etiology review of alf notes makes no mention of same. Rectal: There is stephane blood at the rectum and external hemorrhoids are appreciated. EXTREMITIES: Active full range of motion, no pitting or edema. No cyanosis. 2+ pulses x3, patient does have a palpable thrill to dialysis shunt to the left upper arm. NEUROLOGICAL: No focal neurological deficits. Moves all extremities spontaneously and on command. However patient does demonstrate signs of dementia is not sure where he is at what day it is or why he is even in the hospital. SKIN: Warm, Dry, there is no obvious defects to the skin other than the patient has multiple ecchymotic areas diffusely in multiple stages. (JESSE JOSEPH) Course - Laboratory Result Diagrams: 12/12/19 00:53 12/12/19 00:53 - Diagnostic Test Radiology reviewed: Pending <JESSE JOSEPH - Last Filed: 12/12/19 02:44> - Laboratory Result Diagrams: 12/12/19 00:53 12/12/19 00:53 <DINORA LOTT IV - Last Filed: 12/12/19 03:18> - Re-evaluation Re-evalutation: 12/12/19 02:44 Patient has been reevaluated several times I have reviewed the patient's laboratory studies and patient is not anemic at this point in time patient is not grossly bleeding continuously per rectum. Patient will be signed out to oncoming physician for review and evaluation as needed after CT results. (JESSE JOSEPH) 12/12/19 03:16 Patient's hemoglobin here is 12.5. Patient is refusing CT abdomen pelvis as well as any further lab draws. This MD will discharge the patient back to the facility he presented from. (DINORA LOTT IV) - Vital Signs Vital signs: Temp Pulse Resp BP Pulse Ox 98.4 F 13 141/87 H 99 12/12/19 01:13 12/12/19 02:30 12/12/19 02:30 12/12/19 02:30 - Laboratory Laboratory results interpreted by me: 12/12/19 12/12/19 12/12/19 00:53 00:53 02:10 RBC 3.42 L Hgb 12.5 L MCV 112 H MCH 36.6 H RDW 15.7 H Plt Count 120 L Sodium 136.4 L BUN 73 H Creatinine 5.52 H Est GFR ( Amer) 13 L Est GFR (MDRD) Non-Af 10 L Glucose 121 H Creatine Kinase 29 L Albumin 3.1 L Lipase 18.5 L Urine Protein 100 H Urine Glucose (UA) 50 H Discharge <JESSE JOSEPH - Last Filed: 12/12/19 02:44> <DINORA LOTT IV - Last Filed: 12/12/19 03:18> - Discharge Clinical Impression: Rectal bleeding Condition: Stable Disposition: HOME, SELF-CARE Additional Instructions: Return to the Emergency Department without delay if any worse. HOME CARE INSTRUCTIONS & INFORMATION: Thank you for choosing us for your medical needs. We hope you're satisfied with the care you received. After you leave, you must properly care for your problem and, at the same time, observe its progress. Any condition can change. Some illnesses can change rapidly over hours or days. If your condition worsens, return to the Emergency Department or see your physician promptly. ABOUT YOUR X-RAYS AND EKG'S: If you had an EKG or X-rays taken, they have been read by the Emergency Physician. The X-rays and EKG's will also be read by a Radiologist or Telemetry Rn within 24 hours. If discrepancies are noted, you will be notified by telephone. Please be certain the ED has a correct telephone number & address where you can be reached. Also, realize that some fractures or abnormalities do not show up on initial X-rays. If your symptoms continue, see your physician. ABOUT YOUR LABORATORY TEST: If you had laboratory tests, the results have been reviewed by the Emergency Physician. Some test results (for example cultures) may not be available for several days. You will be contacted if any test result shows you need additional treatment. Please be certain the ED has a correct telephone number and address where you can be reached. ABOUT YOUR MEDICATIONS: You will receive instructions on how to take your medicine on the prescription label you receive. Additional information may be provided by the Pharmacy. If you have questions afterwards, call the ED for clarification or further instructions. Some prescribed medications may cause drowsiness. Do not perform tasks such as driving a car or operating machinery without consulting your Pharmacist. If you feel you need a refill of pain medication, your condition will need re-evaluation. Please do not call for a refill of any medication. ABOUT YOUR SIGNATURE: Signature of this document acknowledges to followin. Understanding that you received emergency treatment and that you may be released before al medical problems are known or treated. Please be certain the ED has a correct phone number & address where you can be reached. 2. Acknowledgement that you will arrange for follow-up care as recommended. 3. Authorization for the Emergency Physician to provide information to your follow-up Physician in order to maximize your care. AT ANY TIME, IF YOUR SYMPTOMS CHANGE SIGNIFICANTLY OR WORSEN OR YOU DEVELOP NEW SYMPTOMS, RETURN TO THE EMERGENCY DEPARTMENT IMMEDIATELY FOR RE-EVALUATION. OUR GOAL IS TO PROVIDE EXCELLENT MEDICAL CARE! WE HOPE THAT WE HAVE MET YOUR EXPECTATIONS DURING YOUR EMERGENCY DEPARTMENT VISIT AND THAT YOU FEEL YOU HAVE RECEIVED EXCELLENT CARE! Referrals: CARLOS HANSON MD [Primary Care Provider] - Follow up as needed
[2019-12-12 02:21] LABS: PLATELET COUNT 120 10^3/uL (150-450)
[2019-12-12 02:23] LABS: APPEARANCE,URINE CLEAR; BILIRUBIN,URINE NEGATIVE (NEGATIVE); COLOR,URINE YELLOW; GLUCOSE, URINE 50 mg/dL (NEGATIVE); KETONES,URINE NEGATIVE (NEGATIVE); LEUKOCYTE ESTERASE,URINE NEGATIVE (NEGATIVE); NITRITE,URINE NEGATIVE (NEGATIVE); PROTEIN,URINE 100 mg/dL (NEGATIVE); UROBILINOGEN,URINE NEGATIVE mg/dL (<2.0)
[2019-12-12 02:23] LABS: ANISOCYTOSIS SLIGHT
[2019-12-12 02:24] LABS: OVALOCYTES SLIGHT; POLYCHROMASIA SLIGHT
[2019-12-12 02:25] LABS: PLATELET COMMENT DECREASED; SCHISTOCYTES SLIGHT
[2019-12-12 02:26] LABS: BURR CELLS SLIGHT
[2019-12-12 02:28] LABS: TARGET CELLS SLIGHT
[2019-12-12 03:40] VITALS: BP 131/81
== END 2019-12-12 04:05 | disposition home or self-care (01) ==
LOC: ER 00:08
DX: K62.5 Hemorrhage of anus and rectum (principal); K64.4 Residual hemorrhoidal skin tags; R58 Hemorrhage, not elsewhere classified; F03.90 Unspecified dementia, unspecified severity, without behavioral disturbance, psychotic disturbance, mood disturbance, and anxiety; I12.0 Hypertensive chronic kidney disease with stage 5 chronic kidney disease or end stage renal disease; E11.22 Type 2 diabetes mellitus with diabetic chronic kidney disease; N18.6 End stage renal disease; Z99.2 Dependence on renal dialysis; Z88.8 Allergy status to other drugs, medicaments and biological substances; Z94.1 Heart transplant status
CPT/HCPCS: 36415; 80053; 81001; 82550; 83690; 85025; 85610; 87040; 87070; 87075; 87077; 87086; 87186; 87205; 99284

== ENCOUNTER 2020-01-07 14:57 | Emergency (ER) | payer MEDICARE, MEDICAID ==
--- NOTE | 2020-01-07 15:49 | RADIOLOGY REPORT (SQ) ---
EXAM DESCRIPTION: CT HEAD WITHOUT IMAGES COMPLETED DATE/TIME: 01/07/2020 3:09 pm REASON FOR STUDY: stroke s/s COMPARISON: None. TECHNIQUE: Axial images acquired through the brain without intravenous contrast. Images reviewed wi th bone, brain and subdural windows. Additional sagittal and coronal reconstructions were generated. Images stored on PACS. All CT scanners at this facility use dose modulation, iterative reconstruction, and/or weight based d osing when appropriate to reduce radiation dose to as low as reasonably achievable (ALARA). [facility]: Dose Right [facility]: CareDose [facility]: Dose Right [facility]: Teradose 4D [facility]: [employer] RADIATION DOSE: CT Rad equipment meets quality standard of care and radiation dose reduction techniq ues were employed. CTDIvol: 53.2 - 55.2 mGy. DLP: 2182 mGy-cm. mGy. LIMITATIONS: None. FINDINGS: VENTRICLES: Prominent ventricles secondary to involutional atrophy. CEREBRUM: Cortical atrophy. No masses. No hemorrhage. No midline shift. No evidence for acute inf arction. Areas of low density in the white matter most likely chronic small vessel ischemic changes. CEREBELLUM: No masses. No hemorrhage. No alteration of density. No evidence for acute infarction. EXTRAAXIAL SPACES: No fluid collections. No masses. ORBITS AND GLOBE: No intra- or extraconal masses. Normal contour of globe without masses. CALVARIUM: No fracture. PARANASAL SINUSES: No fluid or mucosal thickening. SOFT TISSUES: No mass or hematoma. OTHER: No other significant finding. IMPRESSION: MICROVASCULAR ISCHEMIA AND GENERALIZED ATROPHY. NO ACUTE IMAGING FINDINGS IN THE BRAIN EVIDENCE OF ACUTE STROKE: NO. COMMENT: Pertinent positive or negative findings of the imaging study reported as a CRITICAL EXAM t kay ALONSO MD at15:42 on 01/07/2020. Category of Critical Exam: Stroke alert Quality ID # [id number]: Final reports with documentation of one or more dose reduction techniques (e.g., Au tomated exposure control, adjustment of the mA and/or kV according to patient size, use of iterative reconstruction technique) TECHNICAL DOCUMENTATION: JOB ID: [id number] 2010 [email or web address]- All Rights Reserved Reading location - IP/workstation name: [email or web address]
[2020-01-07 15:55] LABS: PARTIAL THROMBOPLASTIN TIME 41.5 SEC (23.5-35.8)
--- NOTE | 2020-01-07 15:56 | RADIOLOGY REPORT (SQ) ---
EXAM DESCRIPTION: CHEST SINGLE VIEW IMAGES COMPLETED DATE/TIME: 01/07/2020 3:17 pm REASON FOR STUDY: stroke s/s COMPARISON: 11/27/2018 EXAM PARAMETERS: NUMBER OF VIEWS: One view. TECHNIQUE: Single frontal radiographic view of the chest acquired. RADIATION DOSE: NA LIMITATIONS: Patient rotation. FINDINGS: LUNGS AND PLEURA: Persistent versus recurrent left lung base pleural effusion with the dennis earance of retrocardiac airspace opacities. Mild right lung base airspace opacities. Small right-si ded pleural effusion. No pneumothorax. MEDIASTINUM AND HILAR STRUCTURES: No masses. Contour normal. HEART AND VASCULAR STRUCTURES: Stable cardiomegaly. No central vascular congestion. BONES: No acute findings. HARDWARE: Midline surgical changes and right subclavian dialysis catheter. OTHER: No other significant finding. IMPRESSION: Bibasilar opacities in the setting of cardiomegaly without significant central vascular congestion suggests infectious etiology. Early CHF exacerbation is not entirely excluded. TECHNICAL DOCUMENTATION: JOB ID: [id number] 2010 [employer]- All Rights Reserved Reading location - IP/workstation name: [email or web address]
[2020-01-07 15:59] LABS: INTERNATIONAL RATION (INR) 0.97; PROTHROMBIN TIME 13.1 SEC (11.4-15.4)
[2020-01-07 16:17] LABS: ALBUMIN 3.5 g/dL (3.5-5.0); ALKALINE PHOSPHATASE 106 U/L (38-126); ANION GAP 10 (5-19); ASPARTATE AMINO TRANSFERASE 28 U/L (17-59); BILIRUBIN,DIRECT 0.2 mg/dL (0.0-0.4); BILIRUBIN,TOTAL 0.8 mg/dL (0.2-1.3); BLOOD UREA NITROGEN 55 mg/dL (7-20); CALCIUM 8.4 mg/dL (8.4-10.2); CARBON DIOXIDE 25 mmol/L (22-30); CHLORIDE 101 mmol/L (98-107); CREATINE KINASE 35 U/L (55-170); GLUCOSE 114 mg/dL (75-110); POTASSIUM 4.1 mmol/L (3.6-5.0); TOTAL PROTEIN 7.3 g/dL (6.3-8.2)
[2020-01-07 16:29] LABS: CREATINE KINASE MB 1.81 ng/mL (<4.55); TROPONIN I 0.016 ng/mL
[2020-01-07 17:28] LABS: ABSOLUTE MONOCYTES (AUTO) 0.4 10^3/uL (0.1-1.4); ABSOLUTE NEUT (AUTO) 4.5 10^3/uL (1.7-8.2); BASOPHILS % (AUTO) 0.6 % (0-2); EOSINOPHILS % (AUTO) 0.4 % (0-6); HEMATOCRIT 38.7 % (37.9-51.0); HEMOGLOBIN 12.9 g/dL (13.5-17.0); LYMPHOCYTES % (AUTO) 16.9 % (13-45); MEAN CORPUSCULAR HGB CONC 33.3 g/dL (32.0-36.0); MEAN CORPUSCULAR VOLUME 108 fl (80-97); MONOCYTES % (AUTO) 6.1 % (3-13); PLATELET COUNT 93 10^3/uL (150-450); RED BLOOD COUNT 3.58 10^6/uL (4.35-5.55); RED CELL DISTRIBUTION WIDTH 15.6 % (11.5-14.0); TOTAL CELLS COUNTED % (AUTO) 100 %; WHITE BLOOD COUNT 5.9 10^3/uL (4.0-10.5)
[2020-01-07] MEDS ORDERED: LORAZEPAM INJ 2 MG/1 ML VIAL IV ONE (18:03)
--- NOTE | 2020-01-07 19:50 | RADIOLOGY REPORT (SQ) ---
EXAM DESCRIPTION: MRA HEAD WITHOUT IMAGES COMPLETED DATE/TIME: 01/07/2020 7:40 pm REASON FOR STUDY: altered mental status COMPARISON: None. TECHNIQUE: Axial 3-D [id number] acquisition imaging performed through the brain in the area of t he [place]. Images reformatted using 3-D MIPS. LIMITATIONS: Motion artifact FINDINGS: SOURCE IMAGES: No unexpected findings on source images. No large masses. 3-D MIP: No aneurysm. No occlusions. No significant stenosis. OTHER: No other significant finding. IMPRESSION: Slightly limited study, but the [place] appears to be intact. TECHNICAL DOCUMENTATION: JOB ID: [id number] 2010 [employer]- All Rights Reserved Reading location - IP/workstation name: [email or web address]
--- NOTE | 2020-01-07 19:56 | RADIOLOGY REPORT (SQ) ---
EXAM DESCRIPTION: MRI HEAD WITHOUT IMAGES COMPLETED DATE/TIME: 01/07/2020 7:40 pm REASON FOR STUDY: altered mental status COMPARISON: None. TECHNIQUE: Multiplanar imaging includes non-contrasted T1, T2, FLAIR, and diffusion with ADC map seq uences. Images stored on PACS. LIMITATIONS: None. FINDINGS: ANATOMY: No anomalies. Normal vascular flow voids. Pituitary fossa normal. CSF SPACES: Prominent lateral ventricles. CEREBRUM: Cortical atrophy, sulci are prominent. Considerable areas of increased white matter signal on FLAIR imaging. No evidence of hemorrhage, mass, or extraaxial fluid collection. POSTERIOR FOSSA: No signal alteration. No hemorrhage. No edema, masses or mass effect. Internal ammon tory canals, cerebello-pontine angles, mastoids normal. DIFFUSION IMAGING: Negative for acute or sub-acute infarction. ORBITS: No masses. Globes normal. PARANASAL SINUSES: No fluid levels. Mucosa normal. OTHER: No other significant finding. IMPRESSION: Involutional changes with chronic microvascular ischemia. No acute intracranial imaging finding. EVIDENCE OF ACUTE STROKE: NO. TECHNICAL DOCUMENTATION: JOB ID: [id number] 2010 [employer]- All Rights Reserved Reading location - IP/workstation name: [email or web address]
--- NOTE | 2020-01-07 19:56 | EKG REPORT ---
SEVERITY:- ABNORMAL ECG - SINUS RHYTHM PROBABLE LEFT ATRIAL ABNORMALITY RIGHT BUNDLE BRANCH BLOCK : Confirmed by: Stone Estrada MD 07-Jan-2020 19:55:58
--- NOTE | 2020-01-07 22:09 | ER Document Report ---
Entered by ELLIS BASS SCRIBE 01/07/20 3603 Acting as scribe for:EMMANUELLE ALONSO MD ED Neuro Symptoms/Deficit - General Chief Complaint: Altered Mental Status Stated Complaint: ALTERED MENTAL STATUS Primary Care Provider: CARLOS HANSON MD [Primary Care Provider] - Follow up as needed Cannot obtain history due to: Altered mental status Notes: This 64 year old male patient presents to the emergency department today from dialysis for concerns of altered mental status. EMS reports that they were about fci through his dialysis treatment and he seemed confused and would only answer questions with "yes". Daughter says the patient was this way yesterday as well and she mentions that when he gets this way he usually either has an infection or when he has missed dialysis. Patient is confused and unable to provide any meaningful history. TRAVEL OUTSIDE OF THE [place] IN LAST 30 DAYS: No - Related Data Allergies/Adverse Reactions: ROMEL Inhibitors Allergy (Verified 03/10/19 11:25) gabapentin Allergy (Verified 03/10/19 11:25) haloperidol [From Haldol] Allergy (Verified 03/10/19 11:25) Home Medications: lipitor, Vitamin D3, vistaril, melatonin, protonix, prednison, tylenol, prograft, ambien, zofran, ultram, humalog. Past Medical History - General Information source: Emergency Med Personnel Cannot obtain history due to: Altered mental status - Social History Smoking Status: Former Smoker Lives with: Group Home Family History: Reviewed & Not Pertinent, CAD - Past Medical History Cardiac Medical History: Reports: Hx Atrial Fibrillation, Hx Congestive Heart Failure, Hx Hypercholesterolemia, Hx Hypertension Pulmonary Medical History: Reports: Hx COPD, Hx Sleep Apnea Endocrine Medical History: Reports: Hx Diabetes Mellitus Type 2 Renal/ Medical History: Reports: Hx End Stage Renal Disease, Hx Hemodialysis GI Medical History: Reports: Hx Ulcer Psychiatric Medical History: Reports: Hx Dementia Past Surgical History: Reports: Hx Cardiac Surgery - heart transplant Review of Systems - Review of Systems -: Yes ROS unobtainable due to patient's medical condition Physical Exam - Vital signs Vitals: Resp Pulse Ox 23 H 95 01/07/20 15:23 01/07/20 15:23 - Notes Notes: Physical Exam: General: Alert, unable to provide any history or answer any questions. Perseverates when trying to answer questions. HEENT: Normocephalic. Atraumatic. PERRL, right sub-conjunctival hemorrhage, no hyphema. Extraocular movements intact. Oropharynx clear. Neck: Supple. Non-tender. Respiratory: No respiratory distress. Clear and equal breath sounds bilaterally. Cardiovascular: Regular rate and rhythm. Abdominal: Normal Inspection. Non-tender. No distension. Normal Bowel Sounds. Back: No gross abnormalities. Extremities: Moves all four extremities. Upper extremities: Normal inspection. Normal ROM. Lower extremities: Normal inspection. No edema. Normal ROM. Neurological: Unable to follow most commands or answer questions. Says "yes" or "wow" for every answer. Moves all extremities on command. Psychological: Unable to assess Skin: Warm. Dry. Normal color. Course - Re-evaluation Re-evalutation: 01/07/20 21:57 On arrival from EMS patient met in the hallway to determine if patient met possibility of stroke symptoms. Patient was drowsy and was perseverating in his words and showed some weakness in the left upper extremity with pronator drift. Inasmuch as these appear to be new symptoms since being on dialysis stroke judy elam was called. - Vital Signs Vital signs: Temp Pulse Resp BP Pulse Ox 21 H 157/99 H 98 01/07/20 16:00 01/07/20 16:01 01/07/20 16:01 01/07/20 21:58 Patient vital signs as present 157/99 with a pulse ox of 98 respiratory rate 21. Patient does not appear to be toxic at this time and appears to be given his best effort trying to answer questions or participate in the neuro assessment. However patient continues to perseverate or answers questions answers with the same response to every question. - Laboratory Result Diagrams: 01/07/20 17:07 01/07/20 15:31 Laboratory results interpreted by me: 01/07/20 15:31 APTT 41.5 H 01/07/20 21:59 Laboratories essentially within normal limits except for renal failure BUN and creatinine elevation. Otherwise chemistries unremarkable. White blood cell count not elevated as well. - Diagnostic Test Radiology reviewed: Image reviewed, Reports reviewed Radiology results interpreted by me: 01/07/20 21:59 Chest x-ray shows cardiomegaly and bibasilar infiltrates which may represent congestive heart failure inasmuch as patient with did incompletely finishes dialysis today. Also noted he does not appear the patient has cephalization or congestion of vessels in his lung so the question is whether is this CHF versus some inflammatory or infectious process. 01/07/20 22:00 CT scan of the head shows ischemic changes that appear to be chronic not any new strokes or evidence for masses tumors or swelling. MRA MRI of brain shows normal [place] without any stroke and again noted micro-ischemic changes noted in brain without any evidence of new stroke. - EKG Interpretation by Me Additional EKG results interpreted by me: 01/07/20 22:02 Twelve-lead EKG shows normal sinus rhythm, probable atrial abnormality , and a right bundle branch branch block and no acute ST-T wave changes to suggest ischemia. 01/07/20 22:02 - Transfer of Care Care transferred to following provider: Care transferred to Dr. Moura, as follow-up with patient pending transfer Notes: 01/07/20 22:08 Initiated transfer to [facility] regarding patient with altered mental status chronic renal failure and a heart transplant patient. 01/07/20 22:15 [facility] has accepted patient in transfer to their facility however patient is placed on the waiting list at this time Dr. Caro of cardiology has accepted patient. Intal form completed. ED NIH Stroke Scale - NIH Stroke Scale *: 1. NIH scale should be completed with appropriate accompanying assessment tools. *: 2. The NIH should reflect what the patient is capable of doing and should not be coached by the clinician. 1a. Level of Consciousness: 0=Alert;keenly responsive -: 1=Drowsy -: 2=Obtunded -: 3=Coma/unresponsive or reflex to noxious stimuli. 1a. Responses: 1 1b. Orientation Questions: a. What month is it? -: b. How old are you? -: 0=Answers both questions correctly. -: 1=Answers one question correctly or patient is intubated or has orotracheal trauma. -: 2=Answers neither question correctly. 1b. Responses: 2 1c. Response to commands: a. Open and close eyes? -: b. Embossing Unit Operator and release hand? -: Credit is given despite weakness. Demonstration of task is permitted. Substitute command if hands cannot be used. -: 0=Performs both tasks correctly -: 1=Performs one task correctly -: 2=Performs neither task correctly 1c. Responses: 0 2. Gaze: Establish eye contact and instruct patient to "Follow my finger" -: 0=Normal -: 1=Partial gaze palsy. Gaze is abnormal in one or both eyes, but where forced deviation or total gaze paresis is not present. -: 2=Forced deviation or total gaze paresis. 2. Responses: 0 3. Visual [place]: Sees fingers in all four quadrants. -: 0=No visual loss. -: 1=Partial hemianopsia. -: 2=Complete hemianopsia. -: 3=Bilateral hemianopsia (including Cortical blindness) 3. Responses: 0 4. Facial Movement: Instruct patient to: -: a. Show me your teeth -: b. Raise your eyebrows -: c. Close your eyes -: d. Smile -: 0=Normal symmetrical movement -: 1=Minor paralysis (flattened nasolabial fold, asymmetry on smiling). -: 2=Partial paralysis (total or near total paralysis of lower face). -: 3=Complete paralysis of upper and lower face 4. Responses: 0 5. Motor functions (left arm): Alternate sides and extend each arm with palms down (90 degrees if sitting or 45 degrees for supine). -: 0=No drift;limb holds for full 10 seconds. -: 1=Drift; limb holds but drifts down before full 10 seconds, but does not hit bed. -: 2=Some effort against gravity; limb cannot get to or maintain position. -: 3=No effort against gravity; limb falls. -: 4=No movement. -: UN=Amputation, joint fusion, explain in comments. 5. Responses (left arm): 1 5. Motor Functions (right arm): Alternate sides and extend each arm with palms down (90 degrees if sitting or 45 degrees for supine). -: 0=No drift;limb holds for full 10 seconds. -: 1=Drift; limb holds but drifts down before full 10 seconds, but does not hit bed. -: 2=Some effort against gravity; limb cannot get to or maintain position. -: 3=No effort against gravity; limb falls. -: 4=No movement. -: UN=Amputation, joint fusion, explain in comments. 5. Responses (right arm): 0 6. Motor Functions (left leg): With patient lying supine, alternate sides and extend each leg (30 degrees always while supine). -: 0=No drift, leg holds position for full 5 seconds -: 1=Drift; leg falls before full 5 seconds but does not hit bed. -: 2=Some effort against gravity, leg falls to bed but some effort against gravity. -: 3=No effort against gravity, leg falls to bed immediately. -: 4=No movement. -: UN=Amputation, joint fusion; explain in comments. 6. Responses (left leg): 1 6. Motor Functions (right leg): With patient lying supine, alternate sides and extend each leg (30 degrees always while supine). -: 0=No drift, leg holds position for full 5 seconds -: 1=Drift; leg falls before full 5 seconds but does not hit bed. -: 2=Some effort against gravity, leg falls to bed but some effort against gravity. -: 3=No effort against gravity, leg falls to bed immediately. -: 4=No movement. -: UN=Amputation, joint fusion; explain in comments. 6. Responses (right leg): 0 7. Limb Ataxia: With eyes open instruct patient to: -: a. "Touch your finger to your nose". -: b. "Touch your heel to your valdez" -: 0=Absent -: 1=Present in one limb. -: 2=Present in two limbs. -: UN=Amputation or joint fusion; explain in comments. 7. Responses: UN - Confusion with perseveration and unable to follow simple tasks 8. Sensory: Test sensation using pinprick or noxious stimuli. Test as many body parts as possible. -: 0=Normal;no sensory loss -: 1=Mile to moderate sensory loss (patient feels pin prick but is less sharp on affected side). -: 2=Severe or total sensory loss. 8. Responses: 0 9. Best Language: Instruct patient to: -: a. "Describe what you see in this picture." -: b. "Name the items in this picture." -: c. "Read these sentences." -: 0=No aphasia, normal -: 1=Mild to moderate aphasia. -: 2=Severe aphasia -: 3=Mute, global aphasia, no usable speech or auditory comprehension. 10. Articulation, Dysarthia: Instruct patient to: -: "Read these words" or "Repeat these words" -: 0=Normal -: 1=Mild to moderate; patient may slur some words but can be understood without difficulty. -: 2=Severe; patients speech so slurred as to be unintelligible in the absence of dysphasia. -: UN=Intubated or other physical barrier, explain in comments. 10. Responses: UN - Patient perseverates and repeatedly answers yes to all questions or answers no to all questions. At other times patient answers by stating "wow" 11. Extinction or inattention: 0=No abnormality -: 1= Visual, tactile, auditory, spatial, or personal inattention or extinction to bilateral simulation in one or the sensory modalities. -: 2=Profound jamar-inattention or jamar-inattention to more than one modality; does not recognize own hand. 11. Responses: 1 - Inconsistent with ability with tactile touch attention and extinction. Total Score: 6 Discharge - Discharge Clinical Impression: Altered mental status, unspecified, Chronic renal failure, Heart transplant recipient Condition: Fair Disposition: [place] Referrals: CARLOS HANSON MD [Primary Care Provider] - Follow up as needed I personally performed the services described in the documentation, reviewed and edited the documentation which was dictated to the scribe in my presence, and it accurately records my words and actions.
--- NOTE | 2020-01-08 05:59 | ER Document Report ---
Doctor's Note Notes: 01/08/20 05:56 Patient was turned over to me by Dr. Ramos pending transfer to [place] for likely stroke/TIA. Patient is heart transplant patient but I have no record of his medications so I have requested that nurse contact family and/or pharmacy to obtain home meds. Patient's BNP elevated but patient has no respiratory sy mptoms at this time and given suspicion for stroke I ordered a swallow eval which patient failed so I have made patient n.p.o. and thus will not diurese patient at this time. Patient has remained stable overnight, will turn patient over to day physician Dr. Daniels to continue monitoring him pending transfer to [place].
[2020-01-08] MEDS ORDERED: ZOLPIDEM TARTRATE 5 MG TABLET PO PRN (14:31)
[2020-01-08] MEDS ORDERED: BISACODYL 5 MG TABEC PO PRN (14:31)
[2020-01-08] MEDS ORDERED: ONDANSETRON 4 MG TAB.RAPDIS PO PRN (14:31)
[2020-01-08] MEDS ORDERED: (PENDING PHARMACY ID) (Acetaminophen [Tylenol] 650 MG) PO PRN (14:31)
[2020-01-08] MEDS ORDERED: TRAMADOL HCL 50 MG TABLET PO PRN (14:31)
[2020-01-08] MEDS ORDERED: GUAIFENESIN SYRP 200 MG/10 ML UDC PO PRN (14:31)
[2020-01-08] MEDS ORDERED: (PENDING PHARMACY ID) (Loperamide Hcl [Loperamide] 2 MG) PO PRN (14:31)
[2020-01-08] MEDS ORDERED: ACETAMINOPHEN 325 MG TABLET PO PRN (14:37)
[2020-01-08] MEDS ORDERED: LOPERAMIDE HCL 2 MG CAPSULE PO PRN (14:39)
--- NOTE | 2020-01-08 15:09 | RADIOLOGY REPORT (SQ) ---
EXAM DESCRIPTION: CHEST SINGLE VIEW IMAGES COMPLETED DATE/TIME: 01/08/2020 2:50 pm REASON FOR STUDY: sobr COMPARISON: 01/07/2020 NUMBER OF VIEWS: One view. TECHNIQUE: Single frontal radiographic image of the chest acquired. LIMITATIONS: None. FINDINGS: LUNGS AND PLEURA: Stable appearance. MEDIASTINUM AND HILAR STRUCTURES: Stable heart size and mediastinal structures. HEART AND VASCULAR STRUCTURES: Stable appearance. BONES: No acute findings. HARDWARE: Sternotomy wires are in place along with dialysis catheter. OTHER: No other significant finding. IMPRESSION: STABLE APPEARANCE OF THE CHEST. TECHNICAL DOCUMENTATION: JOB ID: [id number] 2010 [employer]- All Rights Reserved Reading location - IP/workstation name: [email or web address]
[2020-01-08 16:01] LABS: ABSOLUTE EOSINOPHILS # (AUTO) 0.1 10^3/uL (0.0-0.6); ABSOLUTE LYMPHOCYTES (AUTO) 1.4 10^3/uL (0.5-4.7); ABSOLUTE MONOCYTES (AUTO) 0.3 10^3/uL (0.1-1.4); ABSOLUTE NEUT (AUTO) 3.7 10^3/uL (1.7-8.2); BASOPHILS % (AUTO) 0.8 % (0-2); EOSINOPHILS % (AUTO) 1.1 % (0-6); HEMATOCRIT 38.4 % (37.9-51.0); HEMOGLOBIN 12.5 g/dL (13.5-17.0); MEAN CORPUSCULAR HEMOGLOBIN 35.6 pg (27.0-33.4); MEAN CORPUSCULAR HGB CONC 32.6 g/dL (32.0-36.0); MEAN CORPUSCULAR VOLUME 109 fl (80-97); MONOCYTES % (AUTO) 6.3 % (3-13); RED BLOOD COUNT 3.52 10^6/uL (4.35-5.55); RED CELL DISTRIBUTION WIDTH 15.6 % (11.5-14.0); SEGMENTED NEUTROPHILS % (AUTO) 65.8 % (42-78); TOTAL CELLS COUNTED % (AUTO) 100 %; WHITE BLOOD COUNT 5.6 10^3/uL (4.0-10.5)
[2020-01-08 16:02] LABS: ALBUMIN 3.4 g/dL (3.5-5.0); ALKALINE PHOSPHATASE 87 U/L (38-126); ANION GAP 8 (5-19); ASPARTATE AMINO TRANSFERASE 23 U/L (17-59); BILIRUBIN,DIRECT 0.2 mg/dL (0.0-0.4); BILIRUBIN,TOTAL 0.8 mg/dL (0.2-1.3); BLOOD UREA NITROGEN 66 mg/dL (7-20); CALCIUM 8.8 mg/dL (8.4-10.2); CARBON DIOXIDE 26 mmol/L (22-30); CHLORIDE 101 mmol/L (98-107); GLUCOSE 175 mg/dL (75-110); POTASSIUM 4.7 mmol/L (3.6-5.0); TOTAL PROTEIN 6.9 g/dL (6.3-8.2)
[2020-01-08 16:34] LABS: PLATELET COUNT 95 10^3/uL (150-450)
[2020-01-08] MEDS ORDERED: KETOCONAZOLE TP SCH (18:00)
[2020-01-08] MEDS ORDERED: INSULIN LISPRO 4 UNIT SQ SCH (18:00)
[2020-01-08] MEDS ORDERED: INSULIN LISPRO 100 UNIT/ML 3 ML VIAL SUBCUT SCH (18:00)
[2020-01-08] MEDS ORDERED: TOBRAMYCIN SULFATE/DEXAMETH OPH SUSP 2.5 ML OD SCH (18:00)
[2020-01-08] MEDS: IPRATROPIUM/ALBUTEROL 0.5-2.5 MG/3 ML AMPUL NEB SCH ×2 (18:53→20:38)
[2020-01-08 20:18] VITALS: BP 137/81
[2020-01-08] MEDS ORDERED: TACROLIMUS ANHYDROUS 1 MG CAPSULE PO SCH (22:00)
[2020-01-08] MEDS ORDERED: MELATONIN 3 MG TABLET PO SCH (22:00)
[2020-01-08] MEDS ORDERED: ATORVASTATIN CALCIUM 10 MG TABLET PO SCH (22:00)
[2020-01-08] MEDS ORDERED: SIMETHICONE 80 MG TAB.CHEW PO SCH (22:00)
[2020-01-08] MEDS ORDERED: (PENDING PHARMACY ID) (Melatonin [Melatonin] 3 MG) PO SCH (22:00)
[2020-01-09] MEDS ORDERED: PANTOPRAZOLE SODIUM 40 MG TABLET.DR PO SCH (08:00)
[2020-01-09] MEDS ORDERED: TACROLIMUS ANHYDROUS 1 MG CAPSULE PO SCH (08:00)
[2020-01-09] MEDS ORDERED: VITAMIN B COMPLEX TABLET PO SCH (10:00)
[2020-01-09] MEDS ORDERED: CHOLECALCIFEROL (D3) 1,000 UNIT (25 MCG) TABLET PO SCH (10:00)
[2020-01-09] MEDS ORDERED: PROMETHAZINE HCL 25 MG TABLET PO SCH (10:00)
[2020-01-09] MEDS ORDERED: VITAMIN B COMP W C PO SCH (10:00)
[2020-01-09] MEDS ORDERED: PSYLLIUM HUSK 660 GM PO SCH (10:00)
[2020-01-09] MEDS ORDERED: PREDNISONE 5 MG TABLET PO SCH (10:00)
[2020-01-09] MEDS ORDERED: SULFAMETHOXAZOLE/TRIMETHOPRIM 800-160 MG TABLET PO SCH (10:00)
[2020-01-09] MEDS ORDERED: [UNRECOGNIZED DRUG - OTHER] PO SCH (10:00)
[2020-01-09] MEDS ORDERED: (PENDING PHARMACY ID) (Sulfamethoxazole/Trimethoprim [Bactrim 400-80 Mg Tablet] 1 EACH) PO SCH (10:00)
[2020-01-09] MEDS ORDERED: PSYLLIUM SEED-SF 5.85 GM PACKET PO SCH (10:00)
[2020-01-09] MEDS ORDERED: FOLIC ACID PO SCH (10:00)
[2020-01-09] MEDS ORDERED: HYDROXYZINE PAMOATE 25 MG CAPSULE PO SCH (10:00)
== END 2020-01-08 20:39 ==
LOC: ER 14:57
DX: R41.82 Altered mental status, unspecified (principal); H11.31 Conjunctival hemorrhage, right eye; Z94.1 Heart transplant status; I13.0 Hypertensive heart and chronic kidney disease with heart failure and stage 1 through stage 4 chronic kidney disease, or unspecified chronic kidney disease; E11.22 Type 2 diabetes mellitus with diabetic chronic kidney disease; N18.9 Chronic kidney disease, unspecified; I50.9 Heart failure, unspecified; Z99.2 Dependence on renal dialysis; Z87.891 Personal history of nicotine dependence; J44.9 Chronic obstructive pulmonary disease, unspecified; I45.10 Unspecified right bundle-branch block; R29.706 NIHSS score 6; Z20.828 Contact with and (suspected) exposure to other viral communicable diseases
CPT/HCPCS: 93005; 94640; 99285; 96374; 36415; 87040; 82553; 82962; 82140; 82550; 83605; 85025; 85610; 85730; 80053; 84484; 83880; 70551; 70544; 71045 ×2; 70450; 93010; U0003; A9270 ×5; J2060; C9803; 87635; J1815; J3490; S0119